=== PATIENT | male | born 1960 | race Caucasian/White ===

== ENCOUNTER 2017-12-29 08:25 | Day surgery (SDC) | payer OTHER ==
[2017-12-29] MEDS: NS 1,000 ML IV (08:30)
[2017-12-29] MEDS ORDERED: LIDOCAINE 2% INJ 100 MG/5 ML SDV (FOR ANES.) As Ordered (09:17)
[2017-12-29] MEDS ORDERED: PROPOFOL 200 MG/20 ML VIAL As Ordered (09:17)
== END 2017-12-29 10:08 | disposition home or self-care (01) ==
LOC: M OPP 08:25
DX: Z12.11 Encounter for screening for malignant neoplasm of colon (principal); K64.0 First degree hemorrhoids; Z86.010 Personal history of colon polyps; K21.9 Gastro-esophageal reflux disease without esophagitis; M19.90 Unspecified osteoarthritis, unspecified site; G47.30 Sleep apnea, unspecified; Z86.69 Personal history of other diseases of the nervous system and sense organs; Z91.89 Other specified personal risk factors, not elsewhere classified
CPT/HCPCS: 45378

== ENCOUNTER → 2018-03-29 | Outpatient (REF) | payer OTHER ==
[~2018-03-29] MED LIST: CALC500T49 PO; CENTCHW3 PO; IBUPOTC PO; MAGN200T PO
== END ==
LOC: M LAB REF 11:50
PROVIDERS: ATTEND Internal Medicine
DX: R53.83 Other fatigue (principal)

== ENCOUNTER → 2019-09-28 | Outpatient (CLI) | payer OTHER ==
[2019-09-28 16:58] LABS: ALBUMIN 3.9 GM/DL (3.2-5.2); ALT/SGPT 35 U/L (12-78); BILIRUBIN,TOTAL 0.5 MG/DL (0.2-1.0); BLOOD UREA NITROGEN 14 MG/DL (7-18); CALCIUM LEVEL 8.7 MG/DL (8.5-10.1); CARBON DIOXIDE LEVEL 30 MEQ/L (21-32); CHLORIDE LEVEL 105 MEQ/L (98-107); CREATININE FOR GFR 1.09 MG/DL (0.70-1.30); GLOMERULAR FILTRATION RATE > 60.0 (>56); GLUCOSE, FASTING 98 MG/DL (70-100); MAGNESIUM LEVEL 2.2 MG/DL (1.8-2.4); SODIUM LEVEL 141 MEQ/L (136-145); TOTAL PROTEIN 7.3 GM/DL (6.4-8.2)
== END ==
LOC: M WUC 14:55
PROVIDERS: ATTEND Physician Assistant
DX: Z00.00 Encounter for general adult medical examination without abnormal findings (principal)

== ENCOUNTER → 2019-10-24 | Outpatient (REF) | payer OTHER ==
[2019-12-04 08:12] LABS: LDL DIRECT SEE SEPARATE REPORT mg/dl
== END ==
LOC: M LAB REF 15:32
PROVIDERS: ATTEND Internal Medicine
DX: E78.00 Pure hypercholesterolemia, unspecified (principal)

== ENCOUNTER → 2020-05-09 | Outpatient (CLI) | payer OTHER ==
[2020-05-09 17:03] LABS: ALBUMIN 4.1 GM/DL (3.2-5.2); PERCENT SATURATION 16.1 % (19.7-50.0)
== END ==
LOC: M WUC 13:13
PROVIDERS: ATTEND Orthopaedic Surgery
DX: Z01.818 Encounter for other preprocedural examination (principal); M16.9 Osteoarthritis of hip, unspecified; M25.552 Pain in left hip

== ENCOUNTER → 2020-06-19 | Outpatient (REF) | payer OTHER ==
[2020-06-19 17:30] LABS: APPEARANCE, URINE CLEAR (CLEAR); BACTERIA, URINE AUTO NEGATIVE (NEGATIVE); BILIRUBIN, URINE AUTO NEGATIVE (NEGATIVE); BLOOD, URINE BLOOD NEGATIVE (NEGATIVE); COLOR, URINE YELLOW (YELLOW); GLUCOSE, URINE (UA) AUTO NEGATIVE (NEGATIVE); KETONE, URINE AUTO NEGATIVE (NEGATIVE); LEUKOCYTE ESTERASE, URINE AUTO NEGATIVE (NEGATIVE); NITRITE, URINE AUTO NEGATIVE (NEGATIVE); PROTEIN, URINE AUTO NEGATIVE (NEGATIVE); RBC, URINE AUTO 0 /HPF (0-3); SPECIFIC GRAVITY URINE AUTO 1.008 (1.002-1.035); SQUAMOUS EPITHELIAL CELL UR AU 0 /HPF (0-6); UROBILINOGEN, URINE AUTO 0.2 mg/dL (0.0-2.0); WBC, URINE AUTO 0 /HPF (0-3)
[2020-06-19 18:25] LABS: INR 0.96
[2020-06-19 18:26] LABS: PARTIAL THROMBOPLASTIN TIME 30.4 SECONDS (24.2-38.5)
== END ==
LOC: M LAB REF 16:22
PROVIDERS: ATTEND Internal Medicine
DX: Z01.818 Encounter for other preprocedural examination (principal)

== ENCOUNTER → 2020-06-26 | Outpatient (CLI) | payer OTHER | LOC: M LABSMTC 10:43 | PROVIDERS: ATTEND Orthopaedic Surgery | DX: Z11.52 Encounter for screening for COVID-19 (principal) ==

== ENCOUNTER → 2021-02-19 | Outpatient (REF) | LOC: M LABSMTC 11:30 | PROVIDERS: ATTEND Pediatrics | DX: Z11.52 Encounter for screening for COVID-19 (principal) ==

== ENCOUNTER → 2021-05-19 | Outpatient (CLI) | payer OTHER ==
[2021-05-19 16:26] LABS: BASO # 0.1 10^3/uL (0.0-0.2); BASO % 0.7 % (0.0-1.0); EOS # 0.1 10^3/uL (0.0-0.5); EOS % 1.9 % (0.0-3.0); HEMATOCRIT 42.3 % (42.0-52.0); HEMOGLOBIN 13.9 g/dl (13.5-17.5); LYMPH # 2.1 10^3/uL (1.5-5.0); MEAN CORPUSCULAR HEMOGLOBIN 29.3 pg (27.0-33.0); MEAN CORPUSCULAR HGB CONC 32.9 g/dl (32.0-36.5); MEAN CORPUSCULAR VOLUME 89.1 fl (80.0-96.0); MONO # 0.6 10^3/uL (0.0-0.8); NEUTROPHILS # 4.1 10^3/uL (1.5-8.5); NEUTROPHILS % 59.3 % (36.0-66.0); PLATELET COUNT, AUTOMATED 181 10^3/uL (150-450); RED BLOOD COUNT 4.75 10^6/uL (4.30-6.10); WHITE BLOOD COUNT 6.8 10^3/uL (4.0-10.0)
[2021-05-19 16:41] LABS: C REACTIVE PROTEIN QUANTITATIV 0.39 MG/DL (0.00-0.30); RHEUMATOID FACTOR QUANT < 10.0 IU/ML (<15.0); URIC ACID 6.9 MG/DL (3.5-7.2)
[2021-05-19 19:14] LABS: ERYTHROCYTE SEDIMENTATION RATE 9 mm/hr (0-20)
== END ==
LOC: M WUC 11:11
PROVIDERS: ATTEND Physician Assistant Surgical
DX: M17.11 Unilateral primary osteoarthritis, right knee (principal)

== ENCOUNTER → 2021-06-13 | Outpatient (CLI) | payer OTHER | LOC: M RAD 08:24 | PROVIDERS: ATTEND Internal Medicine | DX: Z84.89 Family history of other specified conditions (principal) ==

== ENCOUNTER → 2022-03-12 | Outpatient (CLI) | payer OTHER | LOC: M WUC 14:55 | PROVIDERS: ATTEND Physician Assistant Medical | DX: M25.511 Pain in right shoulder (principal) ==

== ENCOUNTER → 2023-02-12 | Outpatient (CLI) | payer OTHER ==
[2023-02-12 17:53] LABS: C REACTIVE PROTEIN QUANTITATIV < 0.40 MG/DL (<1.0)
[2023-02-12 17:54] LABS: RHEUMATOID FACTOR QUANT < 3.5 IU/ML (<14)
== END ==
LOC: M WUC 10:37
PROVIDERS: ATTEND Orthopaedic Surgery
DX: M54.12 Radiculopathy, cervical region (principal); M25.512 Pain in left shoulder

== ENCOUNTER → 2023-05-11 | Outpatient (CLI) | payer OTHER ==
[2023-05-11 17:43] LABS: C REACTIVE PROTEIN QUANTITATIV < 0.40 MG/DL (<1.0)
[2023-05-11 18:00] LABS: RHEUMATOID FACTOR QUANT < 3.5 IU/ML (<14)
== END ==
LOC: M WUC 14:03
PROVIDERS: ATTEND Orthopaedic Surgery
DX: M25.512 Pain in left shoulder (principal); M54.12 Radiculopathy, cervical region

== ENCOUNTER → 2023-07-21 | Outpatient (CLI) | payer OTHER ==
[~2023-07-21] MED LIST changes: +ATOR1TAB21 PO; +COQ1200C3 PO; +CURC500C2 PO; +D-101000 PO; +PHEN30CA21 PO; +TADA5TAB PO; +VALA500T5 PO; +VITA100T86 PO; +[UNRECOGNIZED DRUG - OTHER] EX
[2023-07-21 15:31] LABS: BASO % 0.5 % (0.0-1.0); EOS # 0.1 10^3/uL (0.0-0.5); HEMATOCRIT 44.2 % (42.0-52.0); HEMOGLOBIN 14.9 g/dl (13.5-17.5); LYMPH # 1.6 10^3/uL (1.5-5.0); LYMPH % 25.9 % (24.0-44.0); MEAN CORPUSCULAR HEMOGLOBIN 30.3 pg (27.0-33.0); MEAN CORPUSCULAR HGB CONC 33.7 g/dl (32.0-36.5); MONO # 0.5 10^3/uL (0.0-0.8); MONO % 8.4 % (2.0-8.0); NEUTROPHILS % 63.9 % (36.0-66.0); PLATELET COUNT, AUTOMATED 179 10^3/uL (150-450); RED BLOOD COUNT 4.91 10^6/uL (4.30-6.10); WHITE BLOOD COUNT 6.3 10^3/uL (4.0-10.0)
[2023-07-21 15:44] LABS: ERYTHROCYTE SEDIMENTATION RATE 9 mm/hr (0-20)
[2023-07-21 16:03] LABS: C REACTIVE PROTEIN QUANTITATIV < 0.40 MG/DL (<1.0)
[2023-07-21 16:04] LABS: RHEUMATOID FACTOR QUANT 7.7 IU/ML (<14)
[2023-07-21 16:05] LABS: ALBUMIN 3.6 G/DL (3.2-5.2); ALKALINE PHOSPHATASE 57 U/L (46-116); ALT/SGPT 25 U/L (7.0-40); AST/SGOT 15 U/L (<34); BILIRUBIN,TOTAL 0.6 MG/DL (0.3-1.2); BLOOD UREA NITROGEN 14 MG/DL (9-23); CALCIUM LEVEL 8.8 MG/DL (8.3-10.6); CARBON DIOXIDE LEVEL 29 MMOL/L (20-31); CHLORIDE LEVEL 104 MMOL/L (98-107); CREATININE FOR GFR 0.82 MG/DL (0.70-1.30); GLOMERULAR FILTRATION RATE > 60.0 (>49); GLUCOSE, FASTING 88 MG/DL (74-106); POTASSIUM SERUM 4.2 MMOL/L (3.5-5.1); SODIUM LEVEL 140 MMOL/L (136-145); TOTAL PROTEIN 6.7 G/DL (5.7-8.2)
[2023-07-21 16:08] LABS: URIC ACID 6.5 MG/DL (3.7-9.2)
== END ==
LOC: M WUC 11:15
PROVIDERS: ATTEND Physician Assistant
DX: M19.012 Primary osteoarthritis, left shoulder (principal); M47.892 Other spondylosis, cervical region; M50.322 Other cervical disc degeneration at C5-C6 level

== ENCOUNTER 2023-07-28 06:42 | Day surgery (SDC) | payer OTHER ==
[~2023-07-28] VITALS: Ht 188 cm; Wt 119.1 kg
[2023-07-28] MEDS ORDERED: propofoL 200 MG/20 ML VIAL As Ordered ONE (07:11)
[2023-07-28] MEDS: NS 1,000 ML IV ONE (07:13)
[2023-07-28 07:52] VITALS: TEMP 97.6
[2023-07-28 08:17] VITALS: BP 146/61; O2SAT 95
== END 2023-07-28 08:20 | disposition home or self-care (01) ==
LOC: M OPP 06:42
PROVIDERS: ATTEND Internal Medicine Gastroenterology
DX: Z12.11 Encounter for screening for malignant neoplasm of colon (principal); D12.5 Benign neoplasm of sigmoid colon; K57.30 Diverticulosis of large intestine without perforation or abscess without bleeding; K64.0 First degree hemorrhoids; Z86.010 Personal history of colon polyps; K21.9 Gastro-esophageal reflux disease without esophagitis; E78.00 Pure hypercholesterolemia, unspecified; N40.0 Benign prostatic hyperplasia without lower urinary tract symptoms; G47.30 Sleep apnea, unspecified; Z79.899 Other long term (current) drug therapy

== ENCOUNTER → 2024-01-26 | Outpatient (REF) | payer OTHER ==
[2024-01-26 13:22] LABS: APPEARANCE, URINE CLEAR (CLEAR); BACTERIA, URINE AUTO NEGATIVE (NEGATIVE); BILIRUBIN, URINE AUTO NEGATIVE (NEGATIVE); BLOOD, URINE BLOOD NEGATIVE (NEGATIVE); COLOR, URINE YELLOW (YELLOW); GLUCOSE, URINE (UA) AUTO NEGATIVE (NEGATIVE); KETONE, URINE AUTO NEGATIVE (NEGATIVE); LEUKOCYTE ESTERASE, URINE AUTO NEGATIVE (NEGATIVE); NITRITE, URINE AUTO NEGATIVE (NEGATIVE); PROTEIN, URINE AUTO NEGATIVE (NEGATIVE); RBC, URINE AUTO 0 /HPF (0-3); SPECIFIC GRAVITY URINE AUTO 1.012 (1.002-1.035); SQUAMOUS EPITHELIAL CELL UR AU 0 /HPF (0-6); UROBILINOGEN, URINE AUTO 0.2 mg/dL (0.0-2.0); WBC, URINE AUTO 0 /HPF (0-3)
[2024-01-26 13:53] LABS: CREATININE,RANDOM URINE 95.8 MG/DL
[2024-01-26 14:23] LABS: C REACTIVE PROTEIN QUANTITATIV < 0.40 MG/DL (<1.0)
[2024-01-26 14:24] LABS: BASO # 0.1 10^3/uL (0.0-0.2); BASO % 0.9 % (0.0-1.0); EOS # 0.1 10^3/uL (0.0-0.5); EOS % 1.6 % (0.0-3.0); HEMATOCRIT 45.3 % (42.0-52.0); LYMPH # 1.8 10^3/uL (1.5-5.0); LYMPH % 31.1 % (24.0-44.0); MEAN CORPUSCULAR HEMOGLOBIN 30.3 pg (27.0-33.0); MEAN CORPUSCULAR HGB CONC 33.1 g/dl (32.0-36.5); MEAN CORPUSCULAR VOLUME 91.5 fl (80.0-96.0); MONO # 0.5 10^3/uL (0.0-0.8); MONO % 9.4 % (2.0-8.0); NEUTROPHILS # 3.2 10^3/uL (1.5-8.5); NEUTROPHILS % 56.8 % (36.0-66.0); PLATELET COUNT, AUTOMATED 194 10^3/uL (150-450); RED BLOOD COUNT 4.95 10^6/uL (4.30-6.10); WHITE BLOOD COUNT 5.7 10^3/uL (4.0-10.0)
[2024-01-26 14:25] LABS: ALBUMIN 4.1 G/DL (3.2-5.2); ALKALINE PHOSPHATASE 62 U/L (40-129); ALT/SGPT 29 U/L (7.0-40); AST/SGOT 14 U/L (<34); BILIRUBIN,TOTAL 0.6 MG/DL (0.3-1.2); BLOOD UREA NITROGEN 15 MG/DL (9-23); CALCIUM LEVEL 9.3 MG/DL (8.3-10.6); CARBON DIOXIDE LEVEL 30 MMOL/L (20-31); CHLORIDE LEVEL 106 MMOL/L (98-107); COMPLEMENT C3 165.7 MG/DL (90.0-170.0); COMPLEMENT C4 36.3 MG/DL (12-36); CREATININE FOR GFR 0.87 MG/DL (0.70-1.30); GLOMERULAR FILTRATION RATE > 60.0 (>49); GLUCOSE, FASTING 102 MG/DL (74-106); POTASSIUM SERUM 4.5 MMOL/L (3.5-5.1); SODIUM LEVEL 139 MMOL/L (136-145); TOTAL PROTEIN 7.2 G/DL (5.7-8.2)
[2024-01-26 14:47] LABS: ERYTHROCYTE SEDIMENTATION RATE 10 mm/hr (0-20)
== END ==
LOC: M SFHCRHEU 09:11
PROVIDERS: ATTEND Internal Medicine Rheumatology
DX: R76.8 Other specified abnormal immunological findings in serum (principal); M25.50 Pain in unspecified joint; R21 Rash and other nonspecific skin eruption; R68.2 Dry mouth, unspecified

== ENCOUNTER → 2024-01-31 | Outpatient (CLI) | payer OTHER | LOC: M WUC 14:45 | PROVIDERS: ATTEND Internal Medicine Rheumatology | DX: R76.8 Other specified abnormal immunological findings in serum (principal); M25.50 Pain in unspecified joint; R21 Rash and other nonspecific skin eruption; R68.2 Dry mouth, unspecified ==

== ENCOUNTER → 2024-03-02 | Outpatient (CLI) | payer OTHER ==
[~2024-03-02] MED LIST changes: -TADA5TAB PO; +TADA5TAB94 PO
== END ==
LOC: M PLARAD 09:56
PROVIDERS: ATTEND Internal Medicine Rheumatology
DX: M46.1 Sacroiliitis, not elsewhere classified (principal)

== ENCOUNTER → 2024-05-29 | Outpatient (REF) | payer OTHER ==
[2024-05-29 18:30] LABS: ALKALINE PHOSPHATASE 57 U/L (40-129); ALT/SGPT 24 U/L (7.0-40); AST/SGOT 14 U/L (<34); BILIRUBIN,TOTAL 0.5 MG/DL (0.3-1.2); BLOOD UREA NITROGEN 15 MG/DL (9-23); CALCIUM LEVEL 9.3 MG/DL (8.3-10.6); CARBON DIOXIDE LEVEL 30 MMOL/L (20-31); CHLORIDE LEVEL 104 MMOL/L (98-107); CREATININE FOR GFR 0.89 MG/DL (0.70-1.30); GLOMERULAR FILTRATION RATE > 60.0 (>49); GLUCOSE, FASTING 74 MG/DL (74-106); POTASSIUM SERUM 4.2 MMOL/L (3.5-5.1); SODIUM LEVEL 143 MMOL/L (136-145); TOTAL PROTEIN 6.9 G/DL (5.7-8.2)
== END ==
LOC: M LABWUC 17:25
DX: N40.1 Benign prostatic hyperplasia with lower urinary tract symptoms (principal); N13.9 Obstructive and reflux uropathy, unspecified

== ENCOUNTER → 2024-05-30 | Outpatient (REF) | payer OTHER | LOC: M LAB REF 12:25 | PROVIDERS: ATTEND Internal Medicine | DX: E78.00 Pure hypercholesterolemia, unspecified (principal); K76.0 Fatty (change of) liver, not elsewhere classified ==